=== PATIENT | male | born 1935 | race Caucasian/White ===

== ENCOUNTER 2021-02-03 16:23 | Inpatient (IN) | payer MEDICARE, BC ==
[~2021-02-03] VITALS: Ht 152.4 cm; Wt 104.3 kg
[2021-02-03 16:24] VITALS: BP 190/89
[2021-02-03] MEDS ORDERED: NORVASC5 M1 PO (16:38)
[2021-02-03] MEDS ORDERED: CENTRUM SILVER1 EAC7 PO (16:39)
[2021-02-03] MEDS ORDERED: ACID CONTROLLER20 MG PO (16:39)
[2021-02-03] MEDS ORDERED: HYDROCHLOROTHIA25 M1 PO (16:39)
[2021-02-03] MEDS ORDERED: MAGNESIUM250 M1 PO (16:39)
[2021-02-03] MEDS ORDERED: VALSARTAN160 MG PO (16:39)
[2021-02-03] MEDS ORDERED: AMARYL4 MG PO (16:39)
[2021-02-03] MEDS ORDERED: TRIPLE OMEGA C400 MG PO (16:40)
[2021-02-03] MEDS ORDERED: ACTOS 45 MG45 MG PO (16:40)
[2021-02-03] MEDS ORDERED: METFORMIN HCL500 M3 PO (16:40)
[2021-02-03] MEDS ORDERED: VITAMIN B-121000 MC2 SUBLING (16:40)
[2021-02-03] MEDS ORDERED: EFFER-K 20 MEQ20 ME1 PO (16:40)
[2021-02-03] MEDS ORDERED: NAMENDA 10 MG T10 MG PO (16:40)
[2021-02-03] MEDS ORDERED: CLOBETASOL PROP50 ML TOP (16:41)
[2021-02-03] MEDS ORDERED: VITAMIN D310 MC4 PO (16:41)
[2021-02-03] MEDS ORDERED: ASA81BEC PO (16:41)
[2021-02-03 16:57] LABS: URINE BILIRUBIN NEGATIVE (Negative); URINE BLOOD 3+ (Negative); URINE CLARITY CLOUDY; URINE COLOR RED; URINE GLUCOSE-RANDOM 1+ (Negative); URINE KETONES NEGATIVE (Negative); URINE LEUKOCYTES-REFLEX NEGATIVE (Negative); URINE NITRITE-REFLEX NEGATIVE (Negative); URINE PROTEIN 1+ (Negative); URINE SPECIFIC GRAVITY 1.025 (1.005-1.030); URINE UROBILINOGEN 0.2 E.U./dl (0.2-1.0)
[2021-02-03 17:02] LABS: ABSOLUTE LYMPHOCYTES 0.8 thou/uL (0.8-5.3); ABSOLUTE MONOCYTES 1.1 thou/uL (0.0-1.2); ABSOLUTE NEUTROPHILS 8.3 thou/uL (1.6-8.1); BASOPHILS 0.3 %; EOSINOPHILS 0.1 %; HEMOGLOBIN 13.2 gm/dL (14.0-18.0); LYMPHOCYTES 7.5 %; MCH 29.5 pg (26.0-34.0); MCHC 33.9 g/dL (28.0-37.0); MONOCYTES 10.8 %; MPV 6.7 fl. (7.2-11.1); NUCLEATED RBCS 0 /100WBC; PLATELET COUNT* 239 thou/uL (150-400); POLYS 81.3 %; RBC 4.49 mil/uL (4.50-6.00); RDW-CV 14.5 % (10.5-14.5); WBC 10.2 thou/uL (4.0-11.0)
[2021-02-03 17:07] LABS: BACTERIA-REFLEX None Seen /HPF (None Seen); CASTS None Seen /LPF (None Seen); CRYSTALS None Seen /LPF (None Seen); MUCUS None Seen strn/LPF (None Seen); SQUAMOUS 0-3 Few /LPF (0-3); URINE RBC >20 Many /HPF (0-2); URINE WBC-REFLEX 0-5 Rare /HPF (0-5)
[2021-02-03 17:11] LABS: CALCIUM 8.8 mg/dL (8.5-10.1); CREATININE 0.8 mg/dL (0.6-1.3); POTASSIUM 3.6 mmol/L (3.5-5.1)
[2021-02-03 17:13] LABS: INR 1.1; PROTIME 11.1 Seconds (9.20-11.50)
[2021-02-03 17:21] LABS: ALBUMIN 3.2 g/dL (3.4-5.0); TOTAL BILIRUBIN 0.7 mg/dL (<0.1-1.0); TOTAL PROTEIN 7.1 g/dL (6.4-8.2)
[2021-02-03 19:15] LABS: INFLUENZA A ANTIGEN Negative (Negative); INFLUENZA B ANTIGEN Negative (Negative)
--- NOTE | 2021-02-03 20:00 | NUR ---
PATIENT'S HAD BEEN WAITING TO GET AN UPDATE SINCE 4PM. UPSET SHE WAS NOT INFORMED OF PENDING COVID PCR AND IS UNABLE TO COME BACK TO SEE . GAVE ME CONTACT INFO. [phone] CELL [phone] HOME. WOULD LIKE TO BE INFORMED WHEN PATIENT GETS ROOM. PATIENT IS CURRENTLY BEING BOARDED AT THIS TIME.
[2021-02-03 21:10] VITALS: BP 172/68
[2021-02-04] VITALS (8 sets, daily range): BP systolic 114–171; BP diastolic 59–79
[2021-02-04 02:00] LABS: ABSOLUTE LYMPHOCYTES 0.8 thou/uL (0.8-5.3); ABSOLUTE NEUTROPHILS 7.4 thou/uL (1.6-8.1); BASOPHILS 0.4 %; EOSINOPHILS 0.3 %; HEMATOCRIT 35.6 % (42.0-52.0); LYMPHOCYTES 8.3 %; MCH 29.3 pg (26.0-34.0); MCHC 33.6 g/dL (28.0-37.0); MCV 87.1 fL (80.0-100.0); MONOCYTES 10.9 %; MPV 6.8 fl. (7.2-11.1); NUCLEATED RBCS 0 /100WBC; PLATELET COUNT* 206 thou/uL (150-400); POLYS 80.1 %; RBC 4.09 mil/uL (4.50-6.00); RDW-CV 14.9 % (10.5-14.5); WBC 9.3 thou/uL (4.0-11.0)
[2021-02-04 02:13] LABS: CREATININE 0.7 mg/dL (0.6-1.3)
[2021-02-04 02:14] LABS: POTASSIUM 2.8 mmol/L (3.5-5.1)
--- NOTE | 2021-02-04 08:02 | NUR ---
The patient is alert x1. LS diminished. unkown bowel movement. Arellano draining red tinge urine.
--- NOTE | 2021-02-04 09:05 | EKG ---
[place] [address] ELECTROCARDIOGRAM REPORT Name: DIONISIO DAVIS Room: [address] IN ..#: [id number] Admission: 02/03/21 Attend Phys: Carlos Herron, Discharge: Date of : 37 Date of Service: 02/03/21 1638 Report #: [id number] THIS REPORT FOR: //name// [facility] ED Test Date: 2021-02-03 Test Time: 16:38:51 Pat Name: DIONISIO DAVIS Department: Room: 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
[2021-02-04 10:36] LABS: ALBUMIN 2.6 g/dL (3.4-5.0); CREATININE 0.6 mg/dL (0.6-1.3); POTASSIUM 3.7 mmol/L (3.5-5.1); TOTAL BILIRUBIN 0.5 mg/dL (<0.1-1.0); TOTAL PROTEIN 6.2 g/dL (6.4-8.2)
[2021-02-04] MEDS ORDERED: COMBIGAN EYE DR10 ML EA. EYE (12:17)
[2021-02-04] MEDS ORDERED: LOTEMAX5 ML EA. EYE (12:18)
--- NOTE | 2021-02-04 16:28 | NUR ---
This speech writer attempted to contact pt's daughter, Shagufta Weems ([phone]), per her request. However, this speech writer was unable to make contact and was not able to leave a voicemail at the phone number. This speech writer to make additional attmepts to contact Ms. Weems.
[2021-02-05 00:39] VITALS: BP 171/61
[2021-02-05 04:00] VITALS: BP 108/91
[2021-02-05 07:53] VITALS: BP 168/69
--- NOTE | 2021-02-05 10:42 | NUR ---
CM COMPELTED AN ASSESMENT WITH PT'S DTR, TOÑITO. PT LIVES AT HOME WITH , GOES TO [facility] DAILY FOR ADULT DAYCARE. TOÑITO WOULD LIKE A SNF LIST, WANTS PT TO GO TO SNF AT [place]. PT HAS HX WITH [facility], PT'S DOES NOT WANT PT TO RTRN THERE. PT HAS HX WITH [facility] 3 Y/A. PT USES A WALKER FOR GAIT.
[2021-02-05 12:00] VITALS: BP 166/66
[2021-02-05 15:03] LABS: APTT 33.4 Seconds (25.0-31.3); INR 1.1; PROTIME 10.9 Seconds (9.20-11.50)
[2021-02-05 15:04] LABS: CALCIUM 8.3 mg/dL (8.5-10.1); CREATININE 0.9 mg/dL (0.6-1.3); MAGNESIUM 1.8 mg/dL (1.8-2.4); POTASSIUM 3.5 mmol/L (3.5-5.1)
[2021-02-05 15:07] LABS: ABSOLUTE EOSINOPHILS 0.1 thou/uL (0.0-0.7); ABSOLUTE LYMPHOCYTES 0.8 thou/uL (0.8-5.3); ABSOLUTE MONOCYTES 0.8 thou/uL (0.0-1.2); ABSOLUTE NEUTROPHILS 6.9 thou/uL (1.6-8.1); BASOPHILS 0.2 %; EOSINOPHILS 0.8 %; HEMATOCRIT 38.1 % (42.0-52.0); HEMOGLOBIN 12.7 gm/dL (14.0-18.0); MCH 29.3 pg (26.0-34.0); MCHC 33.3 g/dL (28.0-37.0); MONOCYTES 8.8 %; NUCLEATED RBCS 0 /100WBC; PLATELET COUNT* 275 thou/uL (150-400); POLYS 81.2 %; RBC 4.34 mil/uL (4.50-6.00); RDW-CV 15.1 % (10.5-14.5); WBC 8.5 thou/uL (4.0-11.0)
[2021-02-05 16:00] VITALS: BP 196/93
[2021-02-05 20:00] VITALS: BP 165/71
[2021-02-06 00:47] VITALS: BP 139/58
[2021-02-06 03:05] VITALS: BP 178/83
--- NOTE | 2021-02-06 03:51 | NUR ---
PTS HEART RATE GOES DOWN TO THE 30 TO 40'S WHILE SLEEPING. VS REMAIN STABLE. IT APPEARS TO BE A JUNCTIONAL RYTHM. DR SHEFFIELD NOTIFIED. WILL CONTINUE TO MONITOR PT.
[2021-02-06 08:06] VITALS: BP 144/65
--- NOTE | 2021-02-06 10:22 | NUR ---
cm f/u with pt's dtr, eliza, who indicated pt's spouse first choice for snf is [facility], and 2nd choice is [facility]. cm faxed referral to [facility] [phone] phone [phone]
[2021-02-06 12:34] VITALS: BP 133/57
[2021-02-06] MEDS ORDERED: FLOMAX0.4 MG PO (12:56)
[2021-02-06] MEDS ORDERED: PREDNISONE 10 M10 MG PO (12:56)
[2021-02-06] MEDS ORDERED: CEFDINIR300 MG PO (12:56)
--- NOTE | 2021-02-06 20:00 | CON ---
[address] [address] CONSULTATION Name: DIONISIO DAVIS Room: [address] IN M.R.#: [id number] Admission: 02/03/21 Attend Phys: Carlos Herron MD Discharge: 02/06/21 Date of : 37 Report #: [id number] THIS REPORT FOR: cc: Abraham Negro MD, Matthew B. MD Pervez, Adeel MD ~ DATE OF CONSULTATION: 02/05/2021 REQUESTING PHYSICIAN: Carlos Herron MD INDICATION FOR CONSULTATION: Lung nodules. HISTORY OF PRESENT ILLNESS: An 85-year-old gentleman. He has a history of dementia and therefore, he is unable to provide a detailed history. He does state that he used to smoke in the past and has now discontinued. It is unknown as to whether he has been vaccinated for COVID-19. Considering that he lives at a long-term care facility, it likely that he was vaccinated. At this time, the patient is admitted with an acute respiratory illness. He has been short of breath. He has been febrile. He has been coughing. The patient currently is being evaluated for COVID-19. The antigen is negative and the PCR is pending. He currently is on room air, does not appear to be in any distress. Blood pressure is mildly elevated. He does appear to be actively bronchospastic on my exam. The patient answered to the negative for 12 other questions for review of systems; however, his ability to understand questions appears to be limited. PAST MEDICAL HISTORY: Dementia, hypertension, type 2 diabetes, prostatism and urinary retention. SOCIAL HISTORY: He says he smoked in the past and has now discontinued. He says he smoked a lot and discontinued 30 years ago. No known history of heavy alcohol use or illegal drug use. CURRENT MEDICATIONS: List in [employer] reviewed. HOME MEDICATIONS: List also in [employer] reviewed. FAMILY HISTORY: The patient is unable to provide family history. ALLERGIES: BENAZEPRIL, TESSALON PERLES, METOLAZONE, BISOPROLOL, GLARGINE INSULIN AND OXCARBAZEPINE ARE LISTED ALLERGIES, NOT KNOWN TO ME WHETHER OR NOT THE PATIENT IN FACT IS ALLERGIC TO ALL THESE MEDICATIONS. PHYSICAL EXAMINATION: [place] [address] CONSULTATION Name: DIONISIO DAVIS Room: [address]#: [id number] Admission: 02/03/21 Attend Phys: Carlos Herron MD Discharge: 02/06/21 Date of : 37 Report #: [id number] GENERAL: He is fully awake. He is able to answer basic questions, but is not aware that he is currently in [facility]. VITAL SIGNS: Has a pulse of 77 and a blood pressure of 166/66, he is saturating 93%. He is not on supplemental oxygen. His respiratory rate is around 16. He is afebrile with a temperature of 36.7. HEENT: Head is normocephalic and atraumatic. Pupils are equal and reactive. There is no throat erythema. NECK: Does not show raised JVP asymmetry, mass or lymph nodes. CHEST: Symmetrical expansion on inspection and palpation. On auscultation, breath sounds are bilaterally equal, but decreased. Expirations are prolonged. There are loud inspiratory and expiratory wheezes heard throughout, more expiratory wheezes. HEART: Regular. There is no murmur. ABDOMEN: Soft and nontender. EXTREMITIES: Lower extremities show no edema and no calf tenderness. SKIN: Dry and intact. NEUROLOGIC: Moves all extremities bilaterally equally and spontaneously with no focal deficit identified. LABORATORY DATA: The patient's CT chest report as well as films are reviewed. In summary, there are patchy infiltrates in the left lower lobe and there is a 7 mm lung nodule. The patient may also have mild cardiomegaly. CT of the abdomen and pelvis report, which I understand is done for hematuria and [facility] reviewed. CT head report in [facility] reviewed. Lab work in [facility] reviewed. It noted that his initial potassium was decreased to 2.8. ASSESSMENT AND PLAN: 1. Shortness of breath and cough. The patient does have infiltrates in the left lower lobe. These are consistent with pneumonia. I suspect that this is a bacterial etiology; however, viral etiology is also possible. Also, the patient appears to be bronchospastic. These appeared to be the etiologies of his shortness of breath and cough. 2. Left lower lobe infiltrates. It appears more likely to me that these are of bacterial etiology; however, viral etiology is also possible. My suspicion of COVID-19 is low. Regardless, I do agree with checking a viral respiratory panel as well as COVID-19 PCR as already ordered by the primary service. Influenza swab and COVID-19 antigen are negative. Recommend continuing with ceftriaxone. We will also go ahead and add Zithromax for atypical coverage. We will plan to treat with antibiotics for about 1 week, could switch to p.o. in the next day or two if he improves. We will also send off a nasal swab for MRSA and if possible sputum culture as well. 3. Bronchospasm. He does appear to be bronchospastic on my exam, he says he smoked in the past. There is no known history of obstructive lung disease though, but he has dementia and he is unable to provide history. [place] [address] CONSULTATION Name: DIONISIO DAVIS Room: [address] IN .R.#: [id number] Admission: 02/03/21 Attend Phys: Carlos Herron MD Discharge: 02/06/21 Date of : 37 Report #: [id number] Solu-Medrol. He is not in a negative pressure room and has a PCR for COVID pending. Therefore, I ordered albuterol via inhaler if his COVID-19 PCR comes back negative and I will switch this over to nebulizer. If his condition worsens before this test is back, then he may need to be transferred to a negative pressure room. 4. Lung nodule. There is a 7 mm lung nodule noted. We would only recommend a followup CT chest without contrast in 3-6 months. 5. Fluid and electrolytes. I discontinued his IV fluids. We would repeat labs now as well as a chest x-ray to reassess fluid status. 6. Gross hematuria. The urology service is on the case. 7. Deep vein thrombosis prophylaxis. Recommend sequential compression devices. 8. Clostridium difficile prophylaxis. We will order Lactinex. Thanks for this consultation. <ELECTRONICALLY SIGNED> By: Baljinder Vasquez MD 02/06/211999 1324 [id number] joshua Pacheco
== END 2021-02-06 16:03 | DRG 865 ==
LOC: M.ERS 16:23 → M.TBA-ER 17:06 → M.ORTHSURG 02-04 08:43
PROVIDERS: Family Medicine; Internal Medicine Critical Care Medicine; ADMIT Internal Medicine; ATTEND Internal Medicine
DX: B34.9 Viral infection, unspecified (principal); J15.9 Unspecified bacterial pneumonia; G93.41 Metabolic encephalopathy; N39.0 Urinary tract infection, site not specified; F03.90 Unspecified dementia, unspecified severity, without behavioral disturbance, psychotic disturbance, mood disturbance, and anxiety; Z20.822 Contact with and (suspected) exposure to COVID-19; I10 Essential (primary) hypertension; R91.1 Solitary pulmonary nodule; R31.0 Gross hematuria; Y83.8 Other surgical procedures as the cause of abnormal reaction of the patient, or of later complication, without mention of misadventure at the time of the procedure; I16.0 Hypertensive urgency; Z88.8 Allergy status to other drugs, medicaments and biological substances; Y92.89 Other specified places as the place of occurrence of the external cause